=== PATIENT | female | born 1975 | race Hispanic/Latino ===

== ENCOUNTER 2017-03-10 13:10 | Emergency (ER) | payer SELFPAY ==
[2017-03-10 13:28] VITALS: BP 117/61
[2017-03-10 14:25] LABS: Urine Drugs of Abuse Note Disclamer
[2017-03-10 14:51] LABS: Bilirubin,Urine NEG (Negative); Blood,Urine SM (Negative); Ketones,Urine NEG (Negative); Leukocyte Esterase,Urine NEG (Negative); Mucus,Urine 2+ /HPF; Nitrite,Urine NEG (Negative); Protein,Urine <15 mg/dL mg/dL (Negative); WBC,Urine < 1.0 /HPF (0.0-6.0)
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
== END 2017-03-11 02:56 | disposition home or self-care (01) ==
LOC: ED 13:10
DX: T74.21XA Adult sexual abuse, confirmed, initial encounter (principal); F17.210 Nicotine dependence, cigarettes, uncomplicated; Z88.2 Allergy status to sulfonamides
CPT/HCPCS: 80307; 81001; 81025; 99283